=== PATIENT | male | born 1995 | race American Indian/Alaskan Native ===

== ENCOUNTER 2017-09-09 08:37 | Emergency (ER) | payer MEDICAID, OTHER ==
[2017-09-09 08:45] VITALS: BMI 23.6
[2017-09-09] MEDS ORDERED: Sodium Chloride 0.9% 1,000 ML IV STA (09:35)
--- NOTE | 2017-09-09 09:35 | ED PDOC ---
Arrival/HPI - General Chief Complaint: Abdominal Pain Time Seen by Provider: 09/09/17 09:28 Historian: Patient - History of Present Illness Narrative History of Present Illness (Text): 09/09/17 09:35 This 21 yo male who denies pmh, presents to this ED c/o left flank pain since yesterday. Patient stated he went to [facility] [place], and stated they did nothing for him. He later admits he had a negative CT scan of abdomen, normal urine, and blood test. He was told he had passed a kidney stone and he was discharge home. Patient stated continues with same pain. Denies sob, cp, nausea, vomiting, rectal bleeding, hematuria, genital rash/pain, trauma, weakness, paresthesias, or abnormal gait. Patient admits dysuria. Time/Duration: Other (see hpi) Context: Home Past Medical History - Provider Review Nursing Documentation Reviewed: Yes - Infectious Disease Hx of Infectious Diseases: None - Cardiac Hx Cardiac Disorders: No - Pulmonary Hx Respiratory Disorders: No - HEENT Hx HEENT Disorder: No - Renal Hx Renal Disorder: No - Hematological/Oncological Hx Blood Disorders: No - Integumentary Hx Dermatological Disorder: No - Musculoskeletal/Rheumatological Hx Musculoskeletal Disorders: No - Gastrointestinal Hx Gastrointestinal Disorders: No - Genitourinary/Gynecological Hx Genitourinary Disorders: No - Psychiatric Hx Substance Use: No - Surgical History Hx Orthopedic Surgery: Yes - Anesthesia Hx Anesthesia: Yes Hx Anesthesia Reactions: No Family/Social History - Physician Review Nursing Documentation Reviewed: Yes Family/Social History: Other (noncontributory) Smoking Status: Unknown If Ever Smoked Hx Alcohol Use: No Hx Substance Use: No Allergies/Home Meds Allergies/Adverse Reactions: Allergies No Known Allergies Allergy (Verified 09/09/17 08:48) Review of Systems - Review of Systems Constitutional: Normal. absent: Fatigue, Weight Change, Fevers Eyes: Normal ENT: Normal Respiratory: Normal Cardiovascular: Normal Gastrointestinal: Abdominal Pain (left flank pain) Genitourinary Male: Normal Musculoskeletal: Normal Skin: Normal Neurological: Normal Endocrine: Normal Hemo/Lymphatic: Normal Psychiatric: Normal Physical Exam Vital Signs Temp Pulse Resp BP Pulse Ox 09/09/17 08:43 98.3 F 69 17 163/72 H 100 Temperature: Afebrile Blood Pressure: Normal Pulse: Regular Respiratory Rate: Normal Appearance: Positive for: Well-Appearing, Non-Toxic, Comfortable Pain Distress: None Mental Status: Positive for: Alert and Oriented X 3 - Systems Exam Head: Present: Atraumatic, Normocephalic Pupils: Present: PERRL Extroacular Muscles: Present: EOMI Conjunctiva: Present: Normal Mouth: Present: Moist Mucous Membranes Neck: Present: Normal Range of Motion Respiratory/Chest: Present: Clear to Auscultation, Good Air Exchange. No: Respiratory Distress, Accessory Muscle Use Cardiovascular: Present: Regular Rate and Rhythm, Normal S1, S2. No: Murmurs Abdomen: Present: Tenderness (mild left flank tenderness), Normal Bowel Sounds. No: Distention, Peritoneal Signs, Rebound, Guarding Genitourinary Male: Present: Other (deferred) Back: Present: Normal Inspection. No: CVA Tenderness, Paraspinal Tenderness, Pain with Leg Raise Upper Extremity: Present: Normal Inspection, Normal ROM. No: Cyanosis, Edema Lower Extremity: Present: Normal Inspection, Normal ROM. No: Edema Neurological: Present: GCS=15, CN II-XII Intact, Speech Normal Skin: Present: Warm, Dry, Normal Color. No: Rashes Psychiatric: Present: Alert, Oriented x 3, Normal Insight, Normal Concentration Medical Decision Making ED Course and Treatment: 09/09/17 10:54 Re-evaluation. Patient feels better. Discussed results and plan with patient who expresses understanding. All questions answered and there is agreement with the plan to discharge home with instructions. Patient stable for discharge. Return if symptoms persist or worsen. Patient was recommended to f/u urologist and to strain urine. He agrees with STD test and to be treated. He was recommended to return to ED if pain worsen, and to drink enough fluids. Re-evaluation Time: 10:54 Reassessment Condition: Re-examined, Improved - Lab Interpretations Lab Results: 09/09/17 09:50 09/09/17 09:50 Lab Results 09/09/17 10:30: Urine Color Yellow, Urine Appearance Sl cloudy, Urine pH 6.0, Ur Specific [place] <= 1.005, Urine Protein Negative, Urine Glucose (UA) Negative, Urine Ketones Negative, Urine Blood Large H, Urine Nitrate Negative, Urine Bilirubin Negative, Urine Urobilinogen 0.2, Ur Leukocyte Esterase Negative , Urine RBC 25 - 30, Urine WBC 1 - 3, Ur Epithelial Cells 0 - 2, Amorphous Sediment Few, Urine Bacteria Many, Urine Other Fiber 09/09/17 09:50: Sodium 140, Potassium 3.8, Chloride 103, Carbon Dioxide 27, Anion Gap 14, BUN 13, Creatinine 1.1, Est GFR ( Amer) > 60, Est GFR (Non- Af Amer) > 60, Random Glucose 101, Calcium 10.3, Total Bilirubin 1.5 H, AST 28, ALT 31, Alkaline Phosphatase 60, Total Protein 7.1, Albumin 4.2, Globulin 2.8, Albumin/Globulin Ratio 1.5 09/09/17 09:50: WBC 7.6, RBC 4.35, Hgb 15.0, Hct 42.6, MCV 97.9, MCH 34.5, MCHC 35.2, RDW 11.3 L, Plt Count 265, MPV 10.9, Gran % 56.2, Lymph % (Auto) 35.7 H, [place] % (Auto) 7.1 H, Eos % (Auto) 0.5 L, Baso % (Auto) 0.5, Gran # 4.26, Lymph # (Auto) 2.7, [place] # (Auto) 0.5, Eos # (Auto) 0.0, Baso # (Auto) 0.04 I have reviewed the lab results: Yes Interpretation: Abnormal lab values (hematuria) - RAD Interpretation Radiology Orders: 09/09/17 09:35 ABD & PELVIS W/O PO OR IV CONT [CT] Stat - Medication Orders Current Medication Orders: Azithromycin (Zithromax) 1,000 mg PO STAT STA PRN Reason: Protocol Stop: 09/09/17 10:53 Ceftriaxone Sodium (Rocephin 1 Gram Ivpb) 1 gm in 100 mls @ 200 mls/hr IVPB STAT STA PRN Reason: Protocol Stop: 09/09/17 11:20 Discontinued Medications Sodium Chloride (Sodium Chloride 0.9%) 1,000 mls @ 999 mls/hr IV .Q1H1M STA Stop: 09/09/17 10:35 Last Admin: 09/09/17 09:56 Dose: 999 mls/hr eMAR Start Stop Document 09/09/17 09:56 GEOVANNY (Rec: 09/09/17 09:56 GEOVANNY [id number]) Intravenous Solution Start Date 09/09/17 Start Time 09:56 End Date 09/09/17 End time 10:56 Total Infusion Time 60 Ketorolac Tromethamine (Toradol) 30 mg IVP STAT STA Stop: 09/09/17 09:36 Last Admin: 09/09/17 09:57 Dose: 30 mg MAR Pain Assessment Document 09/09/17 09:57 GEOVANNY (Rec: 09/09/17 09:57 GEOVANNY [id number]) Pain Reassessment Is this a pain reassessment? No Sleep Is patient sleeping during reassessment? No Presence of Pain Presence of Pain Yes IVP Administration Document 09/09/17 09:57 GEOVANNY (Rec: 09/09/17 09:57 GEOVANNY [id number]) Charges for Administration # of IVP Administrations 1 Ondansetron HCl (Zofran Inj) 4 mg IVP STAT STA Stop: 09/09/17 09:36 Last Admin: 09/09/17 09:56 Dose: 4 mg IVP Administration Document 09/09/17 09:56 GEOVANNY (Rec: 09/09/17 09:56 GEOVANNY [id number]) Charges for Administration # of IVP Administrations 1 Disposition/Present on Arrival - Present on Arrival Any Indicators Present on Arrival: No History of DVT/PE: No History of Uncontrolled Diabetes: No Urinary Catheter: No History of Decub. Ulcer: No History Surgical Site Infection Following: None - Disposition Have Diagnosis and Disposition been Completed?: Yes Diagnosis: Renal stone Disposition: HOME/ ROUTINE Disposition Time: 10:55 Patient Plan: Discharge Patient Problems: Current Active Problems Problem Status Onset Renal stone Acute Condition: IMPROVED Discharge Instructions (ExitCare): Kidney Stones in Adults Additional Instructions: Call private doctor for follow up visit in 1-2 days. Also call urologist for follow up visit . Take medication as instructed. Return to emergency if symptoms worsen . Review STD test with your doctor in 2-3 days. Prescriptions: Famotidine [Pepcid] 40 mg PO DAILY #10 tablet Naproxen 500 mg PO BID PRN #14 tablet PRN Reason: Pain, Severe (8-10) Referrals: Natasha Louise, [Primary Care Provider] - Follow up with primary José Tyler MD [Staff Provider] - Follow up with primary [facility] [Outside] - Follow up with primary [facility] [Outside] - Follow up with primary Forms: [employer] (Korean)
[2017-09-09 09:54] LABS: MEAN CELL VOLUME 97.9 fl (80.0-105.0); MEAN CORPUSCULAR HEMOGLOBIN 34.5 pg (25.0-35.0); RBC 4.35 10^6/uL (3.5-6.1); WHITE BLOOD COUNT 7.6 10^3/ul (4.5-11.0)
[2017-09-09 09:55] LABS: BASO # 0.04 K/mm3 (0.0-2.0); BASO % 0.5 % (0.0-3.0); EOS % 0.5 % (1.5-5.0); GRAN # 4.26 (1.4-6.5); GRAN % 56.2 % (50.0-68.0); LYMPH # 2.7 (1.2-3.4); LYMPH % 35.7 % (22.0-35.0); MEAN CORPUSCULAR HGB CONC 35.2 g/dl (31.0-37.0); MEAN PLATELET VOLUME 10.9 fl (7.0-11.0); MONO # 0.5 (0.1-0.6); MONO % 7.1 % (1.0-6.0); RED CELL DISTRIBUTION WIDTH 11.3 % (11.5-14.5)
[2017-09-09 10:05] LABS: ALB/GLOB RATIO 1.5 (1.1-1.8); ALBUMIN 4.2 g/dL (3.0-4.8); ALT/SGPT 31 U/L (7-56); AST/SGOT 28 U/L (17-59); BLOOD UREA NITROGEN 13 mg/dL (7-21); CALCIUM 10.3 mg/dL (8.4-10.5); GFR AFRICAN-AMERICAN > 60; GFR NON-AFRICAN AMERICAN > 60
--- NOTE | 2017-09-09 10:34 | CT ---
PROCEDURE: CT Abdomen and Pelvis without intravenous contrast HISTORY: left flank pain` COMPARISON: None. TECHNIQUE: Without contrast. Contrast Dose: Radiation dose: Total exam DLP = Total exam DLP = 356 mGy-cm. This CT exam was performed using one or more of the following dose reduction techniques: Automated exposure control, adjustment of the mA and/or kV according to patient size, and/or use of iterative reconstruction technique. FINDINGS: LOWER THORAX: Unremarkable. LIVER: Unremarkable. No gross lesion or ductal dilatation. GALLBLADDER AND BILE DUCTS: Unremarkable. PANCREAS: Unremarkable. No gross lesion or ductal dilatation. SPLEEN: Unremarkable. ADRENALS: Unremarkable. No mass. KIDNEYS AND URETERS: Unremarkable. No hydronephrosis. No solid mass. VASCULATURE: Unremarkable. No aortic aneurysm. BOWEL: Unremarkable. No obstruction. No gross mural thickening. APPENDIX: Unremarkable. Normal appendix. PERITONEUM: Unremarkable. No free fluid. No free air. LYMPH NODES: Unremarkable. No enlarged lymph nodes. BLADDER: There is a 2 mm stone lying in the midline of the bladder posteriorly. This most likely represents a recently passed stone. The finding is seen on image 135 series 3 REPRODUCTIVE: Unremarkable. BONES: No acute fracture. OTHER FINDINGS: None. IMPRESSION: 2 mm stone in the bladder. This most likely represents a recently passed stone. Clinical correlation is suggested. There is no evidence of hydronephrosis or perinephric stranding
[2017-09-09 10:35] LABS: URINE BILIRUBIN NEGATIVE (NEGATIVE); URINE BLOOD LARGE (NEGATIVE); URINE GLUCOSE (UA) NEGATIVE (NEGATIVE); URINE LEUKOCYTE ESTERASE NEGATIVE Leu/uL (NEGATIVE); URINE PROTEIN NEGATIVE mg/dL (<30 mg/dL); URINE UROBILINOGEN 0.2 E.U./dL (<1 E.U./dL)
[2017-09-09 10:37] LABS: URINE APPEARANCE SL CLOUDY (CLEAR); URINE COLOR YELLOW (YELLOW)
[2017-09-09 10:47] LABS: URINE AMORPHOUS SEDIMENT FEW; URINE BACTERIA MANY (NEG); URINE EPITHELIAL CELLS 0 - 2 /hpf (0-5); URINE RBC 25 - 30 /hpf (0-2)
[2017-09-09] MEDS ORDERED: cefTRIAXone 1 gm 1 GM/100 ML BAG IVPB STA (10:51)
[2017-09-09 11:00] LABS: PHENCYCLIDINE, UR NEGATIVE (NEGATIVE)
[2017-09-09 11:11] LABS: BARBITURATES, UR NEGATIVE (NEGATIVE); BENZODIAZEPINES, UR NEGATIVE (NEGATIVE); OPIATES, UR NEGATIVE (NEGATIVE)
[2017-09-09 12:14] VITALS: RESP 18; O2SAT 99
[2017-09-09 12:47] VITALS: BP 150/77; PULSE 66; TEMP 98.8
== END 2017-09-09 12:53 | disposition home or self-care (01) ==
LOC: ED 08:37
DX: N20.0 Calculus of kidney (principal)
CPT/HCPCS: 74176; 80053; 81001; 85025; 87491; 87591; 96361; 96365; 96375; 99285; G0480; J0696; J1885; J2405; J7040

== ENCOUNTER 2018-08-04 12:01 | Emergency (ER) | payer MEDICAID ==
[2018-08-04 12:02] VITALS: BMI 23.6
[2018-08-04 12:44] VITALS: BP 117/74; PULSE 87; RESP 18; TEMP 98.6; O2SAT 97
== END 2018-08-04 13:10 | disposition left against medical advice (07) ==
LOC: ED 12:01
DX: Z02.89 Encounter for other administrative examinations (principal); R05 Cough